=== PATIENT | male | born 1980 | race Caucasian/White ===

== ENCOUNTER 2018-12-30 22:58 | Emergency (ER) | payer OTHER ==
[~2018-12-30] VITALS: Ht 177.8 cm; Wt 88.5 kg
[2018-12-30] MEDS ORDERED: ERYTHROMYCIN E3.5 G2 OPHTHALMIC (23:52)
[2018-12-30] MEDS ORDERED: CYCLOGYL2 M1 OPHTHALMIC (23:52)
[2018-12-30] MEDS ORDERED: NORCO 5-325 TA1 EAC1 PO (23:52)
[2018-12-31 00:08] VITALS: BP 135/79
== END 2018-12-31 00:10 | disposition home or self-care (01) ==
LOC: M.ERS 22:58
DX: S05.01XA Injury of conjunctiva and corneal abrasion without foreign body, right eye, initial encounter (principal); X58.XXXA Exposure to other specified factors, initial encounter; Y93.89 Activity, other specified; Y92.89 Other specified places as the place of occurrence of the external cause; Y99.8 Other external cause status